=== PATIENT | female | born 1995 | race Two or more races ===

== ENCOUNTER 2024-09-10 18:36 | Emergency (ER) | payer MEDICAID, OTHER ==
[~2024-09-10] VITALS: Ht 157.5 cm; Wt 110.9 kg
[2024-09-10 18:46] VITALS: BP 165/110; PULSE 115; RESP 19
[2024-09-10] MEDS: diphenhdrAMINE HCL 50 MG/1 ML VL IM ONE (19:11)
[2024-09-10] MEDS: methylPREDNISolone SOD SUCC 125 MG/2 ML VL IM ONE (19:12)
[2024-09-10] MEDS ORDERED: CLIN1CAP70 PO (19:41)
[2024-09-10] MEDS ORDERED: PRED20TA2 PO (19:41)
[2024-09-10] MEDS ORDERED: DIPH25CA66 PO (19:41)
--- NOTE | 2024-09-10 19:41 | ED.PDOC ---
HPI Allergic reaction HPI Comments 29 YEAR OLD FEMALE PRESENTS TO ER WITH COMPLAINTS OF ALLERGIC REACTION X 1 DAY. PATIENT STATES THAT SHE TOOK HER FIRST DOSE OF AMOXICILLIN ANTIBIOTICS THAT SHE WAS PRESCRIBED IN [place] FOR A RIGHT SIDED EAR INFECTION AND A "SORE THROAT" AT 6 P.M. PRIOR TO ARRIVAL TO ER AND 30 MINUTES AFTERWARDS STARTED DEVELOPING RED ITCHY HIVES TO LEFT SIDE OF FACE WITH ASSOCIATED SHORTNESS OF BREATH. STATES SHE'S TAKEN ANTIBIOTICS IN THE PAST WITHOUT ANY COMPLICATION AND DENIES ANY KNOWN CURRENT ALLERGIES. DENIES ANY CURRENT PAIN. PATIENT PRESENTS TO ER AMBULATORY ON ARRIVAL, ALERT ORIENTED X4, SPEAKING IN CLEAR/COMPLETE SENTENCES, IN NO DISTRESS WITH MILD URTICARIA NOTED TO LEFT SIDE OF FACE WITHOUT ANY ANGIOEDEMA APPRECIATED. DENIES CHEST PAIN, NAUSEA/VOMITING, ABDOMINAL PAIN OR ANY FURTHER SYMPTOMS/COMPLAINTS Chief Complaint: Allergic Reaction Time Seen by MD: 18:57 Primary Care Provider: UNKNOWN Reviewed Notes: Nurses Notes, Medications, Allergies Allergies: Coded Allergies: Penicillins (Verified Allergy, Unknown, 09/10/24) Home Meds Active Scripts Clindamycin Hcl (Clindamycin Hcl) 300 Mg Cap, 1 CAP PO TID for 7 Days, #21 CAP 0 Refills Prov:MARLA FISHMAN 09/10/24 Diphenhydramine Hcl (Benadryl Allergy) 25 Mg Cap, 2 CAP PO Q4HPRN PRN, #30 CAP 0 Refills Prov:MARLA FISHMAN 09/10/24 Prednisone (Prednisone) 20 Mg Tab, 20 MG PO BID for 5 Days, #10 TAB 0 Refills Prov:MARLA FISHMAN 09/10/24 Information Source: Patient Mode of Arrival: Ambulatory Past Medical History PAST MEDICAL HISTORY: Denies Surgical History: Denies all surgeries Family History Family History: Unknown Social History Smoker: Non-Smoker Alcohol: Denies ETOH Use Drugs: Denies Drug Use Lives In: Home Constitutional: denies: chills, diaphoresis, fatigue, fever, malaise, sweats, weakness, others EENTM: reports: others ( STATED IN HPI) Respiratory: denies: cough, hemoptysis, orthopnea, SOB at rest, shortness of breath, SOB with excertion, stridor, wheezing, others Cardiovascular: denies: chest pain, dizzy spells, diaphoresis, Dyspnea on exertion, edema, irregular heart beat, left arm pain, lightheadedness, palpitations, PND, syncope, others Gastrointestinal: denies: abdomen distended, abdominal pain, blood streaked bowels, constipated, diarrhea, dysphagia, difficulty swallowing, hematemesis, melena, nausea, poor appetite, poor fluid intake, rectal bleeding, rectal pain, vomiting, others Genitourinary: denies: abnormal vagina bleeding, burning, dyspareunia, dysuria, flank pain, frequency, hematuria, incontinence, pain, , vagina discharge, urgency, others Neurological: denies: dizziness, fainting, headache, left sided numbness, left sided weakness, numbness, paresthesia, pre-existing deficit, right sided numbness, right sided weakness, seizure, speech problems, tingling, tremors, weakness, others Musculoskeletal: denies: back pain, gout, joint pain, joint swelling, muscle pain, muscle stiffness, neck pain, others Integumetry: reports: others ( STATED IN HPI) Allergic/Immunocompromised: reports: others ( STATED IN HPI) Hematologic/Lymphatic: denies: anemia, blood clots, easy bleeding, easy bruising, swollen glands, others Endocrine: denies: excessive hunger, excessive sweating, excessive thirst, excessive urination, flushing, intolerance to cold, intolerance to heat, unexplained weight gain, unexplained weight loss, others Psychiatric: denies: anxiety, bipolar disorder, depression, hopeless, panic disorder, schizophrenia, sleepless, suicidal, others Physical Exam General Appearance: No Apparent Distress HEENT: PERRL/EOMI, Pharynx Normal (NORMAL THROAT EXAMINATION), Other (MILD ERYTHEMA/BULGING NOTED TO LEFT TM. REMAINDER BILATERAL EAR EXAM-UNREMARKABLE) Neck: Full Range of Motion, Non-Tender, Normal Respiratory: Chest Non-Tender, Lungs Clear, No Accessory Muscle Use, No Respiratory Distress, Normal Breath Sounds Cardiovascular: No Murmur, No Gallop, Regular Rate/Rhythm Breast Exam: Deferred Gastrointestinal: Non Tender, No Pulsatile Mass, Soft Genitalia: Deferred Pelvic: Deferred Rectal: Deferred Extremities: Normal capillary refill, Normal range of motion Neurologic: Alert, cut out stitcher II-XII nml as Tested, No Motor Deficits, Normal Affect, Normal Mood, No Sensory Deficits Cerebellar Function: Normal Reflexes: Normal Skin: Dry, Warm, Other (MILD URTICARIA NOTED TO LEFT SIDE OF FACE. NO ANGIOEDEMA/FURTHER SKIN CHANGES NOTED) Peripheral Pulses: 2+ Radial (R), 2+ Radial (L), 2+ Brachial (R), 2+ Brachial (L) Lymphatic: No Adenopathy Was a procedure done? Was a procedure done?: No Sedation Sedation?: No Differential diagnosis (all) Differential Diagnosis: Anaphylaxis, Angioedema, Hypotension X-Ray, Labs, Meds, VS Vital Signs Date Time Temp Pulse Resp B/P (MAP) Pulse Ox O2 Delivery O2 Flow Rate FiO2 09/10/24 18:46 98.2 115 19 165/110 (128) 96 09/10/24 18:46 19 96 Room Air* 0 21 Current Medications Medications (Trade) Dose Ordered Sig/Yusuf Route Start Time Stop Time Status Last Admin Diphenhydramine HCl (Benadryl Injection) 25 mg ONCE ONCE IM 09/10/24 19:00 09/10/24 19:01 DC 09/10/24 19:11 Methylprednisolone Sodium Succinate (Solu Medrol) 125 mg ONCE ONCE IM 09/10/24 19:00 09/10/24 19:01 DC 09/10/24 19:12 BENADRYL 25 MG IM ORDERED SOLU-MEDROL 125 MG IM ORDERED PATIENT HAD IMPROVEMENT IN SYMPTOMS, TOLERATING P.O. INTAKE WELL AND ASYMPTOMATIC PRIOR TO DISCHARGE ADVISED ON STRICT AVOIDANCE OF PENICILLIN ANTIBIOTICS ADVISED TO DRINK PLENTY OF FLUIDS ADVISED TO FOLLOW UP WITH PCP [facility] IN 1-2 DAYS PATIENT VERBALIZED UNDERSTANDING AND AGREEABLE WITH CURRENT PLAN OF CARE ADVISED TO RETURN TO ER IMMEDIATELY IF SYMPTOMS WORSEN Time of 1ST Reevaluation: 19:00 Reevaluation 1ST: N/A Time of 2ND Reevaluation: 19:30 Reevaluation 2ND: Improved Patient Education/Counseling: Diagnosis, Treatment, Prognosis, Need For Follow Up Family Education/Counseling: No Family Present Departure 1 Departure Time of Disposition: 19:32 Impression: Primary Impression: Allergic reaction Qualified Codes: T78.40XA - Allergy, unspecified, initial encounter Additional Impression: Otitis media of left ear Qualified Codes: H66.92 - Otitis media, unspecified, left ear Disposition: HOME / SELF CARE / HOMELESS Condition: Stable e-Prescriptions Clindamycin Hcl (Clindamycin Hcl) 300 Mg Cap 1 CAP PO TID for 7 Days, #21 CAP 0 Refills Prov: MARLA FISHMAN 09/10/24 Diphenhydramine Hcl (Benadryl Allergy) 25 Mg Cap 2 CAP PO Q4HPRN PRN, #30 CAP 0 Refills Prov: MARLA FISHMAN 09/10/24 Prednisone (Prednisone) 20 Mg Tab 20 MG PO BID for 5 Days, #10 TAB 0 Refills Prov: MARLA FISHMAN 09/10/24 Discharged With: Friend Critical Care Note Critical Care Time?: No Stability Stability form required: No Heart Score Heart Score: Heart Score Response (Comments) Value History N/A 0 EKG N/A 0 Age N/A 0 Risk Factors N/A 0 Troponin N/A 0 Total 0 MARLA FISHMAN Sep 10, 2024 19:41
[2024-09-10 19:42] VITALS: O2SAT 96
== END 2024-09-10 19:52 | disposition home or self-care (01) ==
LOC: ER 18:42
DX: H66.92 Otitis media, unspecified, left ear (principal); T36.0X5A Adverse effect of penicillins, initial encounter; Z88.0 Allergy status to penicillin; Y92.89 Other specified places as the place of occurrence of the external cause
CPT/HCPCS: 96372; 99284; J1200; J2919